=== PATIENT | female | born 1955 | race Caucasian/White ===

== ENCOUNTER 2016-05-26 11:40 | Outpatient (CLI) | payer BC | END 2016-05-26 11:41 | disposition home or self-care (01) | DX: M79.644 Pain in right finger(s) (principal); M25.551 Pain in right hip; M79.662 Pain in left lower leg; C50.919 Malignant neoplasm of unspecified site of unspecified female breast ==

== ENCOUNTER 2016-05-26 11:52 | Outpatient (CLI) | payer BC | END 2016-05-26 11:53 | disposition home or self-care (01) | DX: M16.11 Unilateral primary osteoarthritis, right hip (principal); M25.551 Pain in right hip; C50.912 Malignant neoplasm of unspecified site of left female breast; M79.661 Pain in right lower leg ==

== ENCOUNTER 2016-06-23 10:11 | Outpatient (CLI) | payer BC | END 2016-06-23 10:12 | disposition home or self-care (01) | DX: C50.912 Malignant neoplasm of unspecified site of left female breast (principal); M79.661 Pain in right lower leg; M25.551 Pain in right hip | CPT/HCPCS: 78306; A9503 ==

== ENCOUNTER 2016-06-28 09:08 | Outpatient (CLI) | payer BC | END 2016-06-28 09:09 | disposition home or self-care (01) | DX: M25.50 Pain in unspecified joint (principal); R68.89 Other general symptoms and signs ==

== ENCOUNTER 2016-10-20 14:01 | Outpatient (CLI) | payer BC ==
--- NOTE | 2016-10-20 15:03 | Mammography Report ---
DIGITAL DIAGNOSTIC BILATERAL MAMMOGRAM: 10/20/2016 CLINICAL INDICATION: History of left breast cancer, status post lumpectomy and radiation therapy, fam bud history of breast cancer. TECHNIQUE: Bilateral CC and MLO views, left true lateral, laterally exaggerated craniocaudal, and spo t magnification views. COMPARISON: 03/03/2016, 09/10/2015, 12/02/2014, 11/09/2014, 10/28/2014, 10/14/2013, 05/15/2013, 04/28. FINDINGS: The breasts again demonstrate scattered fibroglandular densities bilaterally. Punctate, ty pically benign calcifications are present. Postoperative and posttreatment changes in the left breast are stable. No suspicious masses, clustered microcalcifications, or regions of architectural distort ion are identified. IMPRESSION: BENIGN FINDINGS. RECOMMENDATION: ROUTINE ANNUAL SCREENING UNLESS OTHERWISE CLINICALLY INDICATED. BIRADS CATEGORY 2-BENIGN FINDINGS. STANDARD QUALIFYING STATEMENTS 1. This examination was reviewed with the aid of Computer-Aided Detection (CAD). 2. A negative or benign imaging report should not delay biopsy if clinically suspicious findings are present. Consider surgical consultation if warranted. More than 5% of cancers are not identified by i maging. 3. Dense breasts may obscure an underlying neoplasm. JOB #: [id number] EXT JOB #:[id number]
== END 2016-10-20 14:02 | disposition home or self-care (01) ==
LOC: DI 14:01
PROVIDERS: ATTEND Internal Medicine Hematology & Oncology
DX: C50.412 Malignant neoplasm of upper-outer quadrant of left female breast (principal); Z80.3 Family history of malignant neoplasm of breast
CPT/HCPCS: 77066

== ENCOUNTER 2017-02-10 19:05 | Outpatient (CLI) | payer BC | END 2017-02-10 19:06 | disposition critical access hospital (66) | LOC: EMS 19:05 | PROVIDERS: ATTEND Surgery | DX: R10.2 Pelvic and perineal pain (principal); M25.551 Pain in right hip; M25.552 Pain in left hip; W10.9XXA Fall (on) (from) unspecified stairs and steps, initial encounter; Y92.009 Unspecified place in unspecified non-institutional (private) residence as the place of occurrence of the external cause | CPT/HCPCS: A0425; A0429 ==

== ENCOUNTER 2017-02-10 19:25 | Emergency (ER) | payer BC ==
[2017-02-10] MEDS ORDERED: HYDROcod/ACETAM 5/325 MG TABLET PO STA (20:11)
[2017-02-10] MEDS ORDERED: HYDROcod/ACETAM 5/325 MG TABLET ONE (20:19)
--- NOTE | 2017-02-10 21:36 | XRAY Preliminary Report ---
Exam: XR LUMBAR SPINE 2 VIEW IMPRESSION: No evidence of fracture or dislocation. [facility] SITE ID: [id number]
--- NOTE | 2017-02-10 21:37 | XRAY Preliminary Report ---
Exam: XR HIPS 2V BILAT IMPRESSION: No evidence of fracture or dislocation. [facility] SITE ID: [id number]
--- NOTE | 2017-02-10 21:38 | XRAY Report ---
EXAM: LUMBOSACRAL SPINE RADIOGRAPHY EXAM DATE: 02/10/2017 09:03 PM. CLINICAL HISTORY: Fall down stairs, back pain. COMPARISONS: None. TECHNIQUE: 3 views. FINDINGS: Alignment: No evidence of dislocation. Bones: Mineralization within normal limits. No fractures or bone lesions. Disks: Normal. Disk heights are maintained. Facets: No degenerative changes. Sacroiliac Joints: Unremarkable. Soft Tissues: Normal. The visualized bowel gas pattern is normal. IMPRESSION: No evidence of fracture or dislocation. [facility] Referring Provider Line: [phone] SITE ID: [id number]
--- NOTE | 2017-02-10 21:40 | XRAY Report ---
EXAM: BILATERAL HIP RADIOGRAPHY EXAM DATE: 02/10/2017 09:02 PM. CLINICAL HISTORY: Fall, pain COMPARISON: None. TECHNIQUE: 3 views. FINDINGS: Bones: No fracture or focal bony lesion. Joints: No evidence of dislocation. There is mild bilateral hip degenerative disease. Soft Tissues: No unexpected soft tissue findings. IMPRESSION: No evidence of fracture or dislocation. [facility] Referring Provider Line: [phone] SITE ID: [id number]
[2017-02-10] MEDS ORDERED: KETOROLAC 60 MG/2 ML VIAL IM STA (22:06)
[2017-02-10] MEDS ORDERED: CYCLOBENZAPRINE 10 MG TABLET PO STA (22:06)
[2017-02-10] MEDS ORDERED: HYDROcod/ACET 5/325 Prepack 6 PO ONE ×2 (22:07→22:18)
[2017-02-10 22:10] VITALS: BP 143/87
--- NOTE | 2017-02-10 22:10 | ED Physician Documentation ---
PD HPI Fall - Stated complaint Stated Complaint: FALL - Chief complaint Chief Complaint: Trauma Ch/Bk - History obtained from History obtained from: Patient, Family, EMS - History of Present Illness Mechanism of injury: Slipped Fall distance: Other (down 8 stairs) Where injury occurred: Home Timing - onset: How many hours ago (1) Injury(ies) location: Back (low back) Pain level max: 8 Pain level now: 8 Quality of pain: Pain, Aching, Dull Associated symptoms: No: LOC, AMS, Amnesia, Seizures, Ear drainage, Nasal drainage, Neck pain, Weakness, Paresthesias, Dyspnea, Nausea / vomiting, Hematemesis, Abdominal distension Symptoms improve with: Rest Worsens with: Movement, Palpation Contributing factors: No: Anticoagulated, Intoxicated Recently seen: Not recently seen Review of Systems Constitutional: denies: Fever, Chills Eyes: denies: Photophobia Ears: denies: Ear pain Nose: denies: Rhinorrhea / runny nose, Congestion Throat: denies: Sore throat Cardiac: denies: Chest pain / pressure Respiratory: denies: Cough, Hemoptysis GI: denies: Abdominal Pain, Nausea, Vomiting, Constipation, Diarrhea : denies: Dysuria, Frequency, Hesitancy, Unable to Void, Incontinent Skin: denies: Rash Musculoskeletal: denies: Neck pain Neurologic: denies: Focal weakness, Numbness, Headache PD PAST MEDICAL HISTORY - Past Medical History Past Medical History: Yes Cardiovascular: Hypertension, High cholesterol Endocrine/Autoimmune: HyPOthyroidism - Past Surgical History /PRESSURE WASHER: Endometrial ablation - Present Medications Home Medications: Ambulatory Orders Medication Instructions Recorded Confirmed Atorvastatin [Lipitor] 80 mg PO DAILY 12/01/14 02/10/17 Hydrochlorothiazide 25 mg PO DAILY 12/01/14 02/10/17 Levothyroxine [Synthroid] 50 mcg PO DAILY 12/01/14 02/10/17 Losartan [Cozaar] 100 mg PO DAILY 12/01/14 02/10/17 amLODIPine [Norvasc] 2.5 mg PO ONCE 09/28/15 02/10/17 Tamoxifen 20 mg PO DAILY 11/07/16 02/10/17 Cyclobenzaprine [Flexeril] 10 mg PO TID PRN #20 tablet 02/10/17 Hydrocodone/Acetaminophen 1 - 2 each PO Q6H PRN #14 tablet 02/10/17 [Hydrocodon-Acetaminophen 5-325] Meloxicam [Mobic] 7.5 mg PO BID PRN #20 tablet 02/10/17 - Allergies Allergies/Adverse Reactions: Allergies Allergy/AdvReac Type Severity Reaction Status Date / Time bacitracin Allergy Rash Verified 02/10/17 19:30 [From Neosporin ([id number])] latex Allergy Hives Verified 02/10/17 19:30 neomycin Allergy Rash Verified 02/10/17 19:30 [From Neosporin ([id number])] polymyxin B Allergy Rash Verified 02/10/17 19:30 [From Neosporin ([id number]-[id number])] - Social History Does the pt smoke?: No Smoking Status: Never smoker Does the pt drink ETOH?: No Does the pt have substance abuse?: No - Immunizations Immunizations are current?: Yes PD ED PE NORMAL - Vitals Vital signs reviewed: Yes - General General: Alert and oriented X 3, No acute distress, Well developed/nourished - HEENT HEENT: Atraumatic, PERRL, EOMI, Moist mucous membranes - Neck Neck: Supple, no meningeal sign, No bony TTP - Cardiac Cardiac: RRR, Strong equal pulses - Respiratory Respiratory: No respiratory distress, Clear bilaterally - Abdomen Abdomen: Soft, Non tender, Non distended - Back Back: Other (Mild low lumbar spine tenderness to palpation, midline, most of the pain is bilateral lower lumbar paraspinal spasm.) - Derm Derm: Warm and dry - Extremities Extremities: No deformity, Other (Tenderness to palpation over the bilateral greater trochanters of the femurs. Limited range of motion mildly secondary to pain. Neurovascularly intact) - Neuro Neuro: Alert and oriented X 3, locks tender 2-12 intact, No motor deficit, No sensory deficit GCS Score: 15 - Psych Psych: Normal mood, Normal affect Results - Vitals Vitals: Vital Signs - 24 hr 02/10/17 02/10/17 19:26 22:10 Temperature 36.4 C L 36.4 C L Heart Rate 103 H 84 Respiratory 18 16 Rate Blood Pressure 178/80 H 143/87 H O2 Saturation 99 98 Oxygen O2 Source Room air - Rads (name of study) Lumbar spine x-ray Radiology: Prelim report reviewed, EMP read contemporaneously, See rad report ( No acute abnormality) Bilateral hip x-ray Radiology: Prelim report reviewed, EMP read contemporaneously, See rad report ( No acute abnormality) PD MEDICAL DECISION MAKING - ED course Complexity details: reviewed results, re-evaluated patient, considered differential, d/w patient, d/w family ED course: Patient is a 61-year-old female who fell down 8 steps, landing on her buttocks. Has low back pain and bilateral hip pain. Pain greatly improved in the emergency department with medication. No acute findings on x-ray. No neurological deficits. Appears to have musculoskeletal contusions and strains. Will place on pain medication, muscle relaxants for home and follow-up with her doctor. Ambulating well in the emergency department. No gross hematuria. Abdomen remained soft nontender nondistended on serial exam. No head or neck injury. No thoracic spine tenderness. Patient and family counseled regarding signs and symptoms for which I believe and urgent re-evaluation would be necessary. Patient with good understanding of and agreement to plan and is comfortable going home at this time This document was made in part using voice recognition software. While efforts are made to proofread this document, sound alike and grammatical errors may occur. Departure - Departure Disposition: Home, Self Care Clinical Impression: Low back strain Qualifiers: Encounter type: initial encounter Qualified Code(s): S39.012A - Strain of muscle, fascia and tendon of lower back, initial encounter Condition: Good Instructions: ED Sprain Strain Lumbar Follow-Up: Elias Lopez ARNP [Primary Care Provider] - Within 1 week Prescriptions: Cyclobenzaprine [Flexeril] 10 mg PO TID PRN #20 tablet PRN Reason: Spasms Hydrocodone/Acetaminophen [Hydrocodon-Acetaminophen 5-325] 1 - 2 each PO Q6H PRN #14 tablet PRN Reason: pain Meloxicam [Mobic] 7.5 mg PO BID PRN #20 tablet PRN Reason: pain Comments: Return if you worsen. This should improve over the next week. You may need physical therapy. It is important that you follow-up with your doctor for repeat evaluation. Do not drink alcohol or drive while on narcotic pain medicine. Note that many narcotic pain relievers also contain tylenol/acetaminophen. Please ensure that your total dose of acetaminophen from all sources does not exceed 3 grams (3000mg) per day. You may constipated on this medication, take a stool softener such as "Colace" twice a day while you are on it. Also recommend a lahg-hpm-zpqngjy laxative such as senna or MiraLAX any day that you do not have a bowel movement. If you received narcotic pain medication in the emergency department, do not drive or operate machinery for the next 24 hours. Your blood pressure was elevated today on check in to the emergency department. This does not mean that you have hypertension, it is a common phenomenon to check into the emergency department and have elevated blood pressure. I recommend that you see your primary care physician within the week to have it rechecked when you're feeling better. Discharge Date/Time: 02/10/17 22:39
[2017-02-10] MEDS ORDERED: KETOROLAC 60 MG/2 ML VIAL ONE (22:18)
[2017-02-10] MEDS ORDERED: CYCLOBENZAPRINE 10 MG TABLET PO ONE (22:18)
== END 2017-02-10 22:39 | disposition home or self-care (01) ==
LOC: ED 19:25
DX: S39.012A Strain of muscle, fascia and tendon of lower back, initial encounter (principal); W10.9XXA Fall (on) (from) unspecified stairs and steps, initial encounter; I10 Essential (primary) hypertension; E03.9 Hypothyroidism, unspecified; E78.00 Pure hypercholesterolemia, unspecified
CPT/HCPCS: 72100; 73521; 96372; 99283; 99284; A9270

== ENCOUNTER 2017-10-26 09:47 | Outpatient (CLI) | payer BC ==
--- NOTE | 2017-10-26 13:11 | Mammography Report ---
Procedure Date: 10/26/2017 Accession Number: [id number] / [id number] Procedure: [facility] - Diagnostic Dig Bilat CPT Code: FULL RESULT: EXAM: Diagnostic Dig Bilat DATE: 10/26/2017 10:20 AM CLINICAL HISTORY: 62-year-old with personal history of left breast cancer status post lumpectomy and radiation therapy, family history of breast cancer TECHNIQUE: Bilateral CC and MLO views, left true lateral and laterally exaggerated craniocaudal views COMPARISON: 10/20/2016, 03/03/2016, 09/10/2015, 12/02/2014, 11/09/2014, 10/28/2014, 10/14/2013, 05/15/2013, 04/28/2013 FINDINGS: The breasts demonstrate scattered fibroglandular densities bilaterally. Postoperative and posttreatment changes are present in the left upper outer quadrant. Coarse and punctate, typically benign calcifications are present. IMPRESSION: Benign findings RECOMMENDATION: Recommend routine annual mammography unless otherwise clinically indicated. BIRADS CATEGORY 2: Benign findings STANDARD QUALIFYING STATEMENTS: 1. This examination was reviewed with the aid of Computer-Aided Detection (CAD). 2. A negative or benign imaging report should not delay biopsy if clinically suspicious findings are present. Consider surgical consultation if warrented. More than 5% of cancers are not identified by imaging. 3. Dense breasts may obscure an underlying neoplasm.
== END 2017-10-26 09:48 | disposition home or self-care (01) ==
LOC: DI 09:47
PROVIDERS: ATTEND Nurse Practitioner Primary Care
DX: C50.912 Malignant neoplasm of unspecified site of left female breast (principal)
CPT/HCPCS: 77066

== ENCOUNTER 2017-11-24 12:38 | Outpatient (CLI) | payer BC ==
--- NOTE | 2017-11-26 09:03 | MRI Report ---
Procedure Date: 11/24/2017 Accession Number: [id number] / [id number] Procedure: MRI - Lumbar Spine W/O CPT Code: FULL RESULT: EXAM: MRI LUMBAR SPINE WITHOUT CONTRAST EXAM DATE: 11/24/2017 01:13 PM. CLINICAL HISTORY: Lower back pain. COMPARISON: Lumbar spine 2 view 02/10/2017. TECHNIQUE: Multiplanar, multisequence T1-weighted and fluid-sensitive sequences of the lumbar spine from T12 to S1 without contrast. Other: None. FINDINGS: Spinal Canal: The conus terminates at L1-L2. Alignment: No scoliosis or spondylolisthesis. Bone Marrow: There is transitional anatomy. There are 6 nonrib-bearing vertebrae. The last visible disk is considered the L5-S1 disk. There is marrow edema in the articular processes at the L4-L5 facet joints bilaterally, worse on the right consistent with inflammation. There is Modic type II change at the L1-L2 level. Disk Levels/Facets: T12-L1: Unremarkable. L1-L2: Minimal endplate irregularity. Canal and foramina are patent. L2-L3: Unremarkable. L3-L4: Minimal facet joint degeneration. Canal and foramina are patent. L4-L5: Broad-based posterior disk bulge. Severe facet joint osteoarthritis. The findings cause mild canal narrowing. There is mild bilateral foraminal narrowing. L5-S1: There is moderate left and mild right facet joint osteoarthritis. The foramina are patent. Musculature: Normal. No edema or fatty atrophy. Other: The partially visualized retroperitoneum is unremarkable. IMPRESSION: 1. Mild degenerative change worst in the L4-L5 facet joints. 2. Transitional anatomy. 3. No significant canal or foraminal narrowing. Comment: The following findings are so common in adults without low back pain that while we report their presence, they must be interpreted with caution and in the context of the clinical situation. (Reference Oliviavik et al, Spine 2001) Prevalence of findings in patients without low back pain: Disk degeneration (any evidence): 92% Disk desiccation/T2 signal loss: 83% Disk height loss: 56% Disk bulge: 64% Disk protrusion: 32% Annular tear/high intensity zone: 38% [facility]
== END 2017-11-24 12:39 | disposition home or self-care (01) ==
LOC: DI 12:38
PROVIDERS: ATTEND Nurse Practitioner Primary Care
DX: M51.16 Intervertebral disc disorders with radiculopathy, lumbar region (principal); M47.26 Other spondylosis with radiculopathy, lumbar region
CPT/HCPCS: 72148

== ENCOUNTER 2018-03-07 10:53 | Outpatient (CLI) | payer BC ==
[~2018-03-07 10:53] MED LIST: IOPAMIDOL-300 100 ML VIAL IVP ONE; IOPAMIDOL-300 50 ML VIAL PO ONE
--- NOTE | 2018-03-07 17:09 | DEXA Report ---
Reason: ASYMPTOMATIC MENOPAUSAL STATE, LOWER BACK PAIN Procedure Date: 03/07/2018 Accession Number: [id number] / [id number] Procedure: DEX - Dexa Spine and/or Hip CPT Code: FULL RESULT: EXAM: Dexa Spine and/or Hip DATE: 03/07/2018 11:35 AM CLINICAL HISTORY: ASYMPTOMATIC MENOPAUSAL STATE, LOWER BACK PAIN TECHNIQUE: Dual energy x-ray absorptiometry (DXA) was performed on a [employer] System. Regions measured are the AP Spine, femoral neck, and if needed forearm. COMPARISON: None. In accordance with the International Society for Clinical Densitometry (ISCD) guidelines, data from previous exams may be reanalyzed using current recommendations and techniques. This is done to allow a more accurate basis for comparison with the current study. FINDINGS: The data for the lumbar spine is as follows: BMD (g/cm/cm) T-SCORE Z-SCORE REGION L1 1.123 -0.1 1.2 L2 1.211 0.1 1.4 L3 1.229 0.2 1.5 L4 1.097 -0.9 0.4 TOTAL 1.166 -0.1 1.2 NOTE: All evaluable vertebrae are used for classification The data for the hip is as follows: BMD (g/cm/cm) T-SCORE Z-SCORE REGION Neck 0.805 -1.7 -0.4 TOTAL 0.945 -0.5 0.5 NOTE: The femoral neck or total proximal femur, whichever is lowest, is used for classification. IMPRESSION: THE WHO CLASSIFICATION BASED ON THE INTERNATIONAL REFERENCE STANDARD IS OSTEOPENIA. THE FRACTURE RISK IS INCREASED. RECOMMENDATION: Patients with diagnosis of osteoporosis or osteopenia should have regular bone mineral density assessment. For those eligible for Medicare, routine testing is allowed once every 2 years. Testing frequency can be increased for patients who have rapidly progressing disease or for those who are receiving medical therapy to restore bone mass. COMMENT: World Health Organization (WHO) definitions for osteoporosis and osteopenia: NORMAL BMD: T-score at -1.0 or higher, fracture risk is low OSTEOPENIA BMD: T-score between -1.0 and -2.5, fracture risk is increased. OSTEOPOROSIS BMD: T-score at -2.5 or lower, fracture risk is high. National Osteoporosis Foundation recommends: 1. Obtain adequate dietary calcium (at least 1200 mg per day) and vitamin D (400-800 international units per day). 2. Participate, as appropriate, in regular weightbearing and muscle-strengthening exercise. 3. Avoid tobacco use and reduce alcohol and caffeine intake. 4. For more detailed information see the website at www.NOF.org.
== END 2018-03-07 10:54 | disposition home or self-care (01) ==
LOC: DI 10:53
PROVIDERS: ATTEND Nurse Practitioner Primary Care
DX: M85.89 Other specified disorders of bone density and structure, multiple sites (principal); Z78.0 Asymptomatic menopausal state; M54.15 Radiculopathy, thoracolumbar region; M54.5 Low back pain
CPT/HCPCS: 77080

== ENCOUNTER 2018-04-17 11:40 | Outpatient (CLI) | payer BC ==
[2018-04-17 12:19] LABS: BASOPHILS % (AUTO) 0.6 %; EOSINOPHILS # (AUTO) 0.2 10^3/uL (0.0-0.7); EOSINOPHILS % (AUTO) 3.1 %; HGB - HEMOGLOBIN 13.6 g/dL (12.0-16.0); LYMPHOCYTES # (AUTO) 0.6 10^3/uL (1.5-3.5); LYMPHOCYTES % (AUTO) 8.6 %; MEAN CORPUSCULAR HEMOGLOBIN 33.2 pg (27.0-31.0); MEAN CORPUSCULAR HGB CONC 34.6 g/dL (32.0-36.0); MEAN CORPUSCULAR VOLUME 95.8 fL (81.0-99.0); MEAN PLATELET VOLUME 9.7 fL (7.9-10.8); MONOCYTES # (AUTO) 0.6 10^3/uL (0.0-1.0); MONOCYTES % (AUTO) 8.2 %; NEUTROPHILS # (AUTO) 5.5 10^3/uL (1.5-6.6); NEUTROPHILS % (AUTO) 79.5 %; PLT - PLATELET COUNT 158 10^3/uL (130-450); WHITE BLOOD COUNT 6.9 x10^3/uL (4.8-10.8)
[2018-04-17 12:30] LABS: CALCIUM 9.6 mg/dL (8.5-10.3); CREATININE 0.8 mg/dL (0.4-1.0)
== END 2018-04-17 23:59 | disposition home or self-care (01) ==
LOC: LAB.R 11:40
PROVIDERS: ATTEND Nurse Practitioner Primary Care
DX: R06.2 Wheezing (principal); R05 Cough
CPT/HCPCS: 80048; 85025; 87070

== ENCOUNTER 2018-04-17 12:07 | Outpatient (CLI) | payer BC ==
--- NOTE | 2018-04-17 12:56 | XRAY Report ---
Reason: COUGH, SYMPTOM,WHEEZING, FEVER Procedure Date: 04/17/2018 Accession Number: [id number] / [id number] Procedure: XR - Chest 2 View X-Ray CPT Code: 88908 FULL RESULT: EXAM: CHEST RADIOGRAPHY EXAM DATE: 04/17/2018 12:16 PM. CLINICAL HISTORY: Cough, symptoms, wheezing, fever. COMPARISON: None. TECHNIQUE: 2 views. FINDINGS: Lungs/Pleura: No focal opacities evident. No pleural effusion. No pneumothorax. Normal volumes. Mediastinum: Heart and mediastinal contours are unremarkable. Other: None. IMPRESSION: No acute cardiopulmonary abnormality. [facility]
== END 2018-04-17 12:08 | disposition home or self-care (01) ==
LOC: DI 12:07
PROVIDERS: ATTEND Nurse Practitioner Primary Care
DX: R05 Cough (principal); R06.2 Wheezing; R50.9 Fever, unspecified
CPT/HCPCS: 71046; 80048; 85025; 87070

== ENCOUNTER 2018-11-08 11:09 | Outpatient (CLI) | payer BC ==
--- NOTE | 2018-11-08 12:54 | Mammography Report ---
Reason: HX LT BREAST CA Procedure Date: 11/08/2018 Accession Number: [id number] / [id number] Procedure: [facility] - Diagnostic Dig Bilat CPT Code: FULL RESULT: EXAM: Diagnostic Dig Bilat DATE: 11/08/2018 11:54 AM CLINICAL HISTORY: Diagnostic examination. Personal history of breast cancer status post left breast lumpectomy in 2014. TECHNIQUE: (B) - Bilateral CC and MLO views were obtained. A left laterally exaggerated CC views obtained and a left ML view was obtained. COMPARISON: 10/26/2017 through 12/02/2014. PARENCHYMAL PATTERN: (A) - The breast(s) demonstrate(s) scattered fibroglandular densities. FINDINGS: Probably benign interval evolution of surgical findings including calcifications are probably dystrophic. There are no suspicious masses, calcifications, or areas of distortion. IMPRESSION: Probably Benign. BI-RADS category 3. RECOMMENDATION: (12MOS) - Recommend 12 month follow-up exam. BI-RADS CATEGORY: (3) - Probably Benign. STANDARD QUALIFYING STATEMENTS: 1. This examination was not reviewed with the aid of Computer-Aided Detection (CAD). 2. A negative or benign imaging report should not preclude biopsy if clinically suspicious findings are present. 3. Dense breasts may obscure an underlying neoplasm. 4. This examination was reviewed with the aid of 3D breast imaging (tomosynthesis).
== END 2018-11-08 11:10 | disposition home or self-care (01) ==
LOC: DI 11:09
PROVIDERS: ATTEND Internal Medicine Hematology & Oncology
DX: C50.412 Malignant neoplasm of upper-outer quadrant of left female breast (principal)
CPT/HCPCS: 77066

== ENCOUNTER 2019-07-17 14:14 | Outpatient (CLI) | payer BC ==
--- NOTE | 2019-07-17 15:44 | XRAY Report ---
Reason: SINUSITIS,CHRONIC Procedure Date: 07/17/2019 Accession Number: [id number] / [id number] Procedure: XR - Sinus Complete CPT Code: Final Report FULL RESULT: EXAM: SINUS RADIOGRAPHY EXAM DATE: 07/17/2019 02:29 PM. CLINICAL HISTORY: 64-year-old female. SINUSITIS, CHRONIC. COMPARISONS: None. TECHNIQUE: 3 views. FINDINGS: Bones: Normal. No fractures or bone lesions. Sinuses: No aeration of the right frontal sinus. The remaining paranasal sinuses appear unremarkable with no fluid level identified. Mastoid Air Cells: Clear. Other: Normal. No soft tissue swelling. IMPRESSION: 1. No aeration of the right frontal sinus. May represent chronic sinusitis is suggested, although sinus may also be aplastic/hypoplastic. The remaining paranasal sinuses appear unremarkable with no fluid levels identified. [facility]
== END 2019-07-17 14:15 | disposition home or self-care (01) ==
LOC: DI 14:14
PROVIDERS: ATTEND Family Medicine
DX: J32.9 Chronic sinusitis, unspecified (principal)
CPT/HCPCS: 70220

== ENCOUNTER 2019-12-04 13:16 | Outpatient (CLI) | payer BC ==
--- NOTE | 2019-12-05 12:42 | Mammography Report ---
BILATERAL DIGITAL DIAGNOSTIC MAMMOGRAM 3D/2D: 12/04/2019 CLINICAL: 5 years post lumpectomy Personal history of left breast cancer. Comparison is made to exams dated: 11/08/2018 mammogram, 10/26/2017 mammogram, 10/20/2016 mammogram, 02/2016 mammogram, 09/10/2015 mammogram, and 10/28/2014 mammogram - [facility]. There are scattered fibroglandular elements in both breasts. There are benign post operative findings in the left breast. No significant masses, calcifications, or other findings are seen in either breast. There has been no significant interval change. IMPRESSION: BENIGN There is no mammographic evidence of malignancy. A 1 year screening mammogram is recommended. This exam was interpreted at Station ID: [id number]. NOTE: For mammograms, a report in lay terms will be sent to the patient. Approximately 15% of breast malignancies will not be visualized mammographically. In the management of a palpable breast mass, a negative mammogram must not discourage biopsy of a clinically suspicious lesion. Electronically Signed By: Wayne Billingsley M.D. [facility] [place]:12/04/2019 14:25:36 ACR BI-RADS Category 2: Benign Finding(s) 3342F PARENCHYMAL PATTERN: (A) - The breast(s) demonstrate(s) scattered fibroglandular densities. BI-RADS CATEGORY: (2) - 2 RECOMMENDATION: (ANNUAL) - Recommend routine annual screening mammography. [id number] 1 year screening LATERALITY: (B)
== END 2019-12-04 13:17 | disposition home or self-care (01) ==
LOC: DI 13:16
PROVIDERS: ATTEND Internal Medicine Hematology & Oncology
DX: Z08 Encounter for follow-up examination after completed treatment for malignant neoplasm (principal); Z85.3 Personal history of malignant neoplasm of breast
CPT/HCPCS: 77066

== ENCOUNTER 2020-10-08 08:00 | Outpatient (CLI) | payer BC ==
[2020-10-08 11:34] LABS: BASOPHILS # (AUTO) 0.1 10^3/uL (0.0-0.1); BASOPHILS % (AUTO) 1.6 %; EOSINOPHILS # (AUTO) 0.3 10^3/uL (0.0-0.7); EOSINOPHILS % (AUTO) 5.6 %; HCT - HEMATOCRIT 43.4 % (37.0-47.0); HGB - HEMOGLOBIN 13.9 g/dL (12.0-16.0); LYMPHOCYTES # (AUTO) 1.3 10^3/uL (1.5-3.5); LYMPHOCYTES % (AUTO) 24.7 %; MEAN CORPUSCULAR HEMOGLOBIN 32.6 pg (27.0-31.0); MEAN CORPUSCULAR VOLUME 101.6 fL (81.0-99.0); MEAN PLATELET VOLUME 12.8 fL (7.9-10.8); MONOCYTES # (AUTO) 0.5 10^3/uL (0.0-1.0); MONOCYTES % (AUTO) 9.7 %; NEUTROPHILS % (AUTO) 58.2 %; PLT - PLATELET COUNT 162 10^3/uL (130-450); RED BLOOD COUNT 4.27 10^6/uL (4.20-5.40); RED CELL DISTRIBUTION WIDTH 12.7 % (12.0-15.0); WHITE BLOOD COUNT 5.2 x10^3/uL (4.8-10.8)
[2020-10-08 12:43] LABS: THYROID STIMULATING HORMONE 2.42 uIU/mL (0.34-5.60)
[2020-10-08 12:44] LABS: ALBUMIN 4.7 g/dL (3.2-5.5); ALBUMIN/GLOBULIN RATIO 1.7 (1.0-2.2); ALKALINE PHOSPHATASE 81 IU/L (42-121); ALT ALANINE AMINOTRANSFERASE 36 IU/L (10-60); AST ASPARTATE AMINOTRANSFERASE 29 IU/L (10-42); BILIRUBIN,TOTAL 0.7 mg/dL (0.2-1.0); BUN - BLOOD UREA NITROGEN 30 mg/dL (6-20); CALCIUM 9.6 mg/dL (8.5-10.3); CARBON DIOXIDE - CO2 27 mmol/L (21-32); CHLORIDE 103 mmol/L (101-111); CHOL/HDL RATIO 2.9 (<4.4); CHOLESTEROL 197 mg/dL; CREATININE 0.8 mg/dL (0.4-1.0); GFR - MDRD 72 (>89); GLUCOSE 108 mg/dL (70-100); HDL CHOLESTEROL 67 mg/dL; LDL CHOLESTEROL,CALCULATED 114 mg/dL; LDL/HDL RATIO 1.7 (<4.4); POTASSIUM 4.8 mmol/L (3.5-5.0); SODIUM 140 mmol/L (135-145); TOTAL PROTEIN 7.5 g/dL (6.7-8.2); TRIGLYCERIDES 78 mg/dL; VLDL CHOLESTEROL 16 mg/dL
[2020-10-08 13:13] LABS: ESTIMATED AVERAGE GLUCOSE 117 mg/dL (70-100); HEMOGLOBIN A1c% 5.7 % (4.27-6.07)
== END 2020-10-08 08:01 | disposition home or self-care (01) ==
LOC: LAB.WCP 08:00
PROVIDERS: ATTEND Family Medicine
DX: E78.5 Hyperlipidemia, unspecified (principal); I10 Essential (primary) hypertension; E03.9 Hypothyroidism, unspecified; K21.9 Gastro-esophageal reflux disease without esophagitis; R73.03 Prediabetes
CPT/HCPCS: 36415; 80053; 80061; 83036; 83721; 84443; 85025

== ENCOUNTER 2020-12-07 10:16 | Outpatient (CLI) | payer BC ==
--- NOTE | 2020-12-08 08:04 | Mammography Report ---
BILATERAL DIGITAL SCREENING MAMMOGRAM 3D/2D: 12/07/2020 CLINICAL: Routine screening. Personal history of left breast cancer. Comparison is made to exams dated: 12/04/2019 mammogram, 11/08/2018 mammogram, 10/26/2017 mammogram, 09/23 mammogram, 03/03/2016 mammogram, and 09/10/2015 mammogram - [facility]. Ther e are scattered fibroglandular elements in both breasts. There is a benign calcification in the left breast. There also are benign post operative findings in the left breast. No significant masses, calcifications, or other findings are seen in either breast. There has been no significant interval change. IMPRESSION: BENIGN There is no mammographic evidence of malignancy. A 1 year screening mammogram is recommended. This exam was interpreted at Station ID: [id number]. NOTE: For mammograms, a report in lay terms will be sent to the patient. Approximately 15% of breast malignancies will not be visualized mammographically. In the management of a palpable breast mass, a negative mammogram must not discourage biopsy of a clinically suspicious lesion. Electronically Signed By: Wayne hoffmann/penrad:12/07/2020 11:10:04 ACR BI-RADS Category 2: Benign Finding(s) 3342F PARENCHYMAL PATTERN: (A) - The breast(s) demonstrate(s) scattered fibroglandular densities. BI-RADS CATEGORY: (2) - 2 RECOMMENDATION: (ANNUAL) - Recommend routine annual screening mammography. [id number] 1 year screening LATERALITY: (B)
== END 2020-12-07 10:17 | disposition home or self-care (01) ==
LOC: DI 10:16
PROVIDERS: ATTEND Internal Medicine Hematology & Oncology
DX: Z12.31 Encounter for screening mammogram for malignant neoplasm of breast (principal); Z85.3 Personal history of malignant neoplasm of breast

== ENCOUNTER 2021-02-25 08:00 | Outpatient (CLI) | payer BC | END 2021-02-25 23:59 | disposition home or self-care (01) | LOC: LAB.N 08:00 | PROVIDERS: ATTEND Nurse Practitioner | DX: B34.9 Viral infection, unspecified (principal); R07.0 Pain in throat; Z20.822 Contact with and (suspected) exposure to COVID-19 | CPT/HCPCS: 87070 ==

== ENCOUNTER 2021-09-22 08:00 | Outpatient (CLI) | payer BC ==
--- NOTE | 2021-09-22 14:03 | XRAY Report ---
PROCEDURE: Chest 2 View X-Ray INDICATIONS: COUGH TECHNIQUE: 2 view(s) of the chest. COMPARISON: 04/17/2018. FINDINGS: Surgical changes and devices: None. Lungs and pleura: No pleural effusions or pneumothorax. Lungs are clear. Mediastinum: Mediastinal contours are normal. Heart size is normal. Bones and chest wall: No suspicious bony abnormalities. Soft tissues appear unremarkable. IMPRESSION: Stable examination of the chest without acute cardiopulmonary abnormalities. No focal ai rspace disease. Reviewed by: Kingston Hoyt MD on 09/22/2021 2:02 PM PDT Approved by: Kingston Hoyt MD on 09/22/2021 2:02 PM PDT Station ID: [id number]
== END 2021-09-22 23:59 | disposition home or self-care (01) ==
LOC: DI.N 08:00
PROVIDERS: ATTEND Family Medicine
DX: R05.9 Cough, unspecified (principal)

== ENCOUNTER 2021-09-22 08:00 | Outpatient (CLI) | payer BC ==
[2021-09-22 17:42] LABS: BASOPHILS # (AUTO) 0.1 10^3/uL (0.0-0.1); BASOPHILS % (AUTO) 0.8 %; EOSINOPHILS % (AUTO) 0.3 %; HCT - HEMATOCRIT 41.3 % (37.0-47.0); HGB - HEMOGLOBIN 13.4 g/dL (12.0-16.0); LYMPHOCYTES # (AUTO) 0.4 10^3/uL (1.5-3.5); LYMPHOCYTES % (AUTO) 2.7 %; MEAN CORPUSCULAR HEMOGLOBIN 31.8 pg (27.0-31.0); MEAN CORPUSCULAR HGB CONC 32.4 g/dL (32.0-36.0); MEAN CORPUSCULAR VOLUME 98.1 fL (81.0-99.0); MEAN PLATELET VOLUME 12.3 fL (7.9-10.8); MONOCYTES # (AUTO) 0.9 10^3/uL (0.0-1.0); MONOCYTES % (AUTO) 5.9 %; NEUTROPHILS # (AUTO) 13.2 10^3/uL (1.5-6.6); NEUTROPHILS % (AUTO) 89.5 %; PLT - PLATELET COUNT 256 10^3/uL (130-450); RED BLOOD COUNT 4.21 10^6/uL (4.20-5.40); RED CELL DISTRIBUTION WIDTH 13.5 % (12.0-15.0); WHITE BLOOD COUNT 14.7 x10^3/uL (4.8-10.8)
[2021-09-22 18:00] LABS: ALBUMIN 3.2 g/dL (3.2-5.5); ALBUMIN/GLOBULIN RATIO 0.6 (1.0-2.2); BILIRUBIN,TOTAL 0.8 mg/dL (0.2-1.0); CALCIUM 9.2 mg/dL (8.5-10.3); CREATININE 2.2 mg/dL (0.4-1.0); POTASSIUM 3.9 mmol/L (3.5-5.0); TOTAL PROTEIN 8.3 g/dL (6.7-8.2)
== END 2021-09-22 23:59 | disposition home or self-care (01) ==
LOC: LAB.N 08:00
PROVIDERS: ATTEND Family Medicine
DX: R05.9 Cough, unspecified (principal); B34.9 Viral infection, unspecified
CPT/HCPCS: 36415; 80053; 85025; 85651